=== PATIENT | male | born 1975 | race Caucasian/White ===

== ENCOUNTER 2022-03-14 16:24 | Emergency (ER) | payer OTHER ==
[~2022-03-14] VITALS: Ht 172.7 cm; Wt 78.6 kg
[2022-03-14] MEDS ORDERED: BACT800T5 PO (16:35)
[2022-03-14] MEDS ORDERED: FLOM0.4C39 PO (16:35)
[2022-03-14 19:58] VITALS: BP 122/72
[2022-03-14 20:09] LABS: GC DNA AMPLIFICATION NEGATIVE (NEGATIVE)
[2022-03-14] MEDS ORDERED: METR-265 PO (20:19)
[2022-03-14] MEDS ORDERED: metroNIDAZOLE (FLAGYL) 500MG TABLET PO ONE (20:20)
== END 2022-03-14 20:52 | disposition home or self-care (01) ==
LOC: M ED 16:24
DX: A59.8 Trichomoniasis of other sites (principal); R31.9 Hematuria, unspecified; Z87.442 Personal history of urinary calculi